=== PATIENT | female | born 1990 | race Caucasian/White ===

== ENCOUNTER 2020-01-30 23:33 | Emergency (ER) | payer OTHER ==
[2020-01-30 23:49] VITALS: RESP 18
--- NOTE | 2020-01-31 00:08 | XR ---
EXAMINATION TYPE: XR knee complete RT DATE OF EXAM: 01/31/2020 COMPARISON: NONE HISTORY: Knee pain TECHNIQUE: 3 views FINDINGS: I see no fracture nor dislocation. Joint spaces are normal. There is no sign of knee joint effusion. IMPRESSION: Negative right knee exam. No fracture.
[2020-01-31] MEDS ORDERED: ACET/COD 300 MG/30 MG STARTER PACK 6 TAB BTL PO STA (00:40)
[2020-01-31] MEDS ORDERED: IBUPROFEN 600 MG STARTER PACK 4 TAB BTL PO STA (00:40)
--- NOTE | 2020-01-31 00:41 | ED ---
Lower Extremity Injury HPI - General Chief Complaint: Extremity Injury, Lower Stated Complaint: RT knee injury Time Seen by Provider: 01/31/20 00:19 Source: patient, family Mode of arrival: ambulatory Limitations: no limitations - History of Present Illness Initial Comments: 29-year-old female patient presents to the emergency department today for evalua tion of right knee injury. Patient states that she was swinging at the park earlier today. Patient states that when she jumped off she twisted her knee. Patient states she is having pain and swelling to the medial aspect of the knee. States it is very difficult to walk. She denies any pain radiation down her leg. Denies numbness or tingling to the extremity. Denies falling, hitting her head, or sustaining any other injuries. Denies taking any medication for her symptoms. Denies previous knee injury. Patient denies any headache, neck pain, back pain, chest pain, shortness of breath, dizziness, weakness, abdominal pain, nausea, vomiting, or difficulties with bowel movements or urination. - Related Data Home Medications Medication Instructions Recorded Confirmed Albuterol Inhaler(Unknown Dose) 1 puff PO DIRECTED PRN 02/17/14 12/27/14 Previous Rx's Medication Instructions Recorded Acetaminophen-Codeine 300-30mg 1 tab PO Q4H PRN #30 tablet 12/29/14 [Tylenol #3] Ibuprofen [Motrin] 600 mg PO Q6HR PRN #30 tab 12/29/14 RX: Ibuprofen [Motrin] 600 mg PO Q8HR PRN #30 tab 01/31/20 Allergies Allergy/AdvReac Type Severity Reaction Status Date / Time No Known Allergies Allergy Verified 01/30/20 23:49 Review of Systems ROS Statement: Those systems with pertinent positive or pertinent negative responses have been documented in the HPI. ROS Other: All systems not noted in ROS Statement are negative. Past Medical History Past Medical History: Asthma Additional Past Medical History / Comment(s): Bartholeins cyst, CONTROL IMPLANT IN LEFT ARM History of Any Multi-Drug Resistant Organisms: None Reported Past Surgical History: Section Additional Past Surgical History / Comment(s): 11/14 cyst drained Past Anesthesia/Blood Transfusion Reactions: No Reported Reaction Past Psychological History: ADD/ADHD Smoking Status: Current every day smoker Past Alcohol Use History: Occasional Past Drug Use History: None Reported - Past Family History Mother Family Medical History: No Reported History General Exam Limitations: no limitations General appearance: alert, in no apparent distress, other (This is a well- developed, well-nourished adult female patient in no acute distress. Vital signs upon presentation are temperature 98.3F, pulse 89, respirations 18, blood pressure 137/91, pulse ox 99% on room air.) Respiratory exam: Present: normal lung sounds bilaterally. Absent: respiratory distress, wheezes, rales, rhonchi, stridor Cardiovascular Exam: Present: regular rate, normal rhythm, normal heart sounds. Absent: systolic murmur, diastolic murmur, rubs, gallop, clicks Extremities exam: Present: full ROM, tenderness (There is tenderness over the medial aspect of the right knee.), normal capillary refill, other (There is soft tissue swelling and tenderness noted over the right medial knee. Patient has increased pain with valgus and varus maneuvers. There is no laxity however. Skin is otherwise pink, warm, dry. Cap refills less than 3 seconds. Pedal and posttibial pulses are 2+ and equal bilaterally.). Absent: normal inspection, pedal edema, joint swelling, calf tenderness Neurological exam: Present: alert, oriented X3, CN II-XII intact Psychiatric exam: Present: normal affect, normal mood Skin exam: Present: warm, dry, intact, normal color. Absent: rash Course Vital Signs 01/30/20 01/31/20 23:44 01:09 Temperature 98.3 F 98 F Pulse Rate 89 78 Respiratory 18 18 Rate Blood Pressure 137/91 122/72 O2 Sat by Pulse 99 97 Oximetry Medical Decision Making - Medical Decision Making 29-year-old female patient presents to the emergency department today for evaluation of right knee pain and swelling. Physical examination did reveal soft tissue swelling and tenderness over the medial aspect of the knee. Neurovascular status was intact. X-ray was negative. We did place patient in a Mike wrap. Given prescription for ibuprofen. She'll be discharged follow up with methods specialist engineer for further evaluation as soon as possible, she is instructed to call for an appointment in the morning. She is instructed to follow-up with the primary care physician for recheck in 1-2 days. Return parameters discussed in detail. She verbalizes understanding and agrees with this plan. - Radiology Data Radiology results: report reviewed, image reviewed 3 views of the right knee are obtained. Report was reviewed in its entirety. Impression by Dr. Galan shows negative right knee exam. No fracture. Disposition Clinical Impression: Strain of right knee Disposition: HOME SELF-CARE Condition: Good Instructions (If sedation given, give patient instructions): Knee Sprain (ED) Additional Instructions: Rest, ice, elevate the right knee. Use Mike wrap for comfort and support. Take medications as directed. Follow-up with methods specialist engineer for further evaluation as soon as possible, Call tomorrow for an appointment. Return to the emergency department immediately for any new, worsening, or concerning symptoms. Prescriptions: RX: Ibuprofen [Motrin] 600 mg PO Q8HR PRN #30 tab PRN Reason: Pain Is patient prescribed a controlled substance at d/c from ED?: No Referrals: Alex Pedraza MD [Primary Care Provider] - 1-2 days Dano Tobar MD [STAFF PHYSICIAN] - 1-2 days Time of Disposition: 00:41
[2020-01-31 01:10] VITALS: BP 122/72; PULSE 78; TEMP 98
== END 2020-01-31 01:11 | disposition home or self-care (01) ==
LOC: EC 23:33
DX: S86.911A Strain of unspecified muscle(s) and tendon(s) at lower leg level, right leg, initial encounter (principal); J45.909 Unspecified asthma, uncomplicated; F17.200 Nicotine dependence, unspecified, uncomplicated; X50.1XXA Overexertion from prolonged static or awkward postures, initial encounter; Y93.39 Activity, other involving climbing, rappelling and jumping off
CPT/HCPCS: 99283

== ENCOUNTER 2020-02-16 19:04 | Emergency (ER) | payer OTHER ==
[2020-02-16] MEDS ORDERED: IBUPROFEN 600 MG TAB PO STA (19:42)
--- NOTE | 2020-02-16 20:03 | ED ---
General Adult HPI - General Chief complaint: Extremity Injury, Upper Stated complaint: rt wrist injury Time Seen by Provider: 02/16/20 19:30 Source: patient Mode of arrival: ambulatory Limitations: no limitations - History of Present Illness Initial comments: This is a 29-year-old female who presents to the emergency department this evening with complaints of right wrist pain, onset yesterday. Patient denies any injury or trauma. 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 Patient reports increased pain with wrist extension. Arrives with an Mike wrap to affected wrist and feels that it is beneficial. Denies any numbness or tingling to the fingers. Patient denies any recent rash, fever, chills, cough, shortness of breath, chest pain, abdominal pain, nausea, vomiting, diarrhea, constipation, back pain, dizziness, weakness, hematuria, dysuria, urinary urgency, urinary frequency, headache, visual changes, or any other complaints. - Related Data Home Medications Medication Instructions Recorded Confirmed Albuterol Inhaler(Unknown Dose) 1 puff PO DIRECTED PRN 02/17/14 12/27/14 Previous Rx's Medication Instructions Recorded Acetaminophen-Codeine 300-30mg 1 tab PO Q4H PRN #30 tablet 12/29/14 [Tylenol #3] Ibuprofen [Motrin] 600 mg PO Q6HR PRN #30 tab 12/29/14 Ibuprofen [Motrin] 600 mg PO Q8HR PRN #30 tab 01/31/20 Ibuprofen [Motrin] 600 mg PO Q8HR PRN #30 tab 02/16/20 Allergies Allergy/AdvReac Type Severity Reaction Status Date / Time No Known Allergies Allergy Verified 02/16/20 19:24 Review of Systems ROS Statement: Those systems with pertinent positive or pertinent negative responses have been documented in the HPI. ROS Other: All systems not noted in ROS Statement are negative. Past Medical History Past Medical History: Asthma Additional Past Medical History / Comment(s): Bartholeins cyst, CONTROL IMPLANT IN LEFT ARM History of Any Multi-Drug Resistant Organisms: None Reported Past Surgical History: Section Additional Past Surgical History / Comment(s): 11/14 cyst drained Past Anesthesia/Blood Transfusion Reactions: No Reported Reaction Past Psychological History: ADD/ADHD Smoking Status: Current every day smoker Past Alcohol Use History: Occasional Past Drug Use History: None Reported - Past Family History Mother Family Medical History: No Reported History General Exam Limitations: no limitations General appearance: alert, in no apparent distress, other (This is a well- developed, well-nourished female who presents to the emergency department in no acute distress. Temperature of 98.3F, pulse 113, respirations 20, blood pressure 137/100, pulse ox 99% on room air) Respiratory exam: Present: normal lung sounds bilaterally. Absent: respiratory distress, wheezes, rales, rhonchi, stridor Cardiovascular Exam: Present: regular rate, normal rhythm, normal heart sounds. Absent: systolic murmur, diastolic murmur, rubs, gallop, clicks Right Forearm Wrist exam: Present: tenderness, swelling, crepitus, other (Mild swelling noted to the distal radius on the right wrist/forearm; +René test) Vascular: Present: radial pulse Neurological exam: Present: alert, oriented X3, CN II-XII intact Psychiatric exam: Present: normal affect, normal mood Skin exam: Present: warm, dry, intact, normal color. Absent: rash Course Vital Signs 02/16/20 02/16/20 19:21 21:21 Temperature 98.3 F 98.0 F Pulse Rate 113 H 98 Respiratory 20 18 Rate Blood Pressure 137/100 135/89 O2 Sat by Pulse 99 99 Oximetry Medical Decision Making - Medical Decision Making This is a 29-year-old female who presented to the emergency Department with complaints of right wrist pain and swelling, onset yesterday. 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 Physical examination reveals soft tissue swelling, tenderness, and crepitus to the right wrist. She had positive Finkelst ein test. Neurovascular status intact. XRay was negative. Symptoms and findings consistent with Dequervain's Tenosynovitis. We will treat with compression and antinflammatory medication. She will be discharged to follow up with her primary care physician for recheck in 1-2 days. Return parameters are discussed in detail. She verbalizes understanding and agrees with this plan. - Radiology Data Radiology results: report reviewed, image reviewed X-ray of the right wrist was obtained. Findings include intact metacarpals. No fracture nor dislocation. Normal joint spaces. Impression per Dr. Galan is a negative right wrist exam. Disposition Clinical Impression: De Quervain's tenosynovitis, right Disposition: HOME SELF-CARE Condition: Good Instructions (If sedation given, give patient instructions): De Quervain Disease (ED) Additional Instructions: Continue using an Mike wrap for support. Take anti-inflammatory medicines as needed for pain. Follow up with primary care doctor in 1-2 days. Return to the emergency Department with any new, worsening, or concerning symptoms. Prescriptions: Ibuprofen [Motrin] 600 mg PO Q8HR PRN #30 tab PRN Reason: Pain Is patient prescribed a controlled substance at d/c from ED?: No Referrals: Alex Pedraza MD [Primary Care Provider] - 1-2 days Time of Disposition: 20:54
--- NOTE | 2020-02-16 20:27 | XR ---
EXAMINATION TYPE: XR wrist complete RT DATE OF EXAM: 02/16/2020 COMPARISON: NONE HISTORY: Wrist pain TECHNIQUE: 4 views FINDINGS: Metacarpals appear intact. I see no fracture nor dislocation. Joint spaces are normal. IMPRESSION: Negative right wrist exam.
[2020-02-16 21:22] VITALS: BP 135/89; PULSE 98; RESP 18; TEMP 98
== END 2020-02-16 21:22 | disposition home or self-care (01) ==
LOC: EC 19:04
DX: M65.4 Radial styloid tenosynovitis [de Quervain] (principal); F17.200 Nicotine dependence, unspecified, uncomplicated; J45.909 Unspecified asthma, uncomplicated; Z79.51 Long term (current) use of inhaled steroids
CPT/HCPCS: 99283

== ENCOUNTER 2020-03-04 10:45 | Emergency (ER) | payer OTHER ==
[2020-03-04] MEDS ORDERED: LIDOCAINE 1% INJ 10MG/ML (20 ML MDV) SQ ONE (11:06)
--- NOTE | 2020-03-04 11:10 | ED ---
Skin/Abscess/FB HPI - General Chief complaint: Skin/Abscess/Foreign Body Stated complaint: leg pain Time Seen by Provider: 03/04/20 11:00 Source: patient, RN notes reviewed, old records reviewed Mode of arrival: ambulatory Limitations: no limitations - History of Present Illness Initial comments: Patient is a 29-year-old female who presents emergency department today with abscess to the left perineal area for the past 2 days. She reports no history of resistant skin infections. She states that she's had Bartholin glands abscess before however seems to be further posterior. She denies any rectal pain or difficulty with urination or bowel habits. She states that she's had no history of recent skin infections. - Related Data Home Medications Medication Instructions Recorded Confirmed Albuterol Inhaler(Unknown Dose) 1 puff PO DIRECTED PRN 02/17/14 12/27/14 Previous Rx's Medication Instructions Recorded Acetaminophen-Codeine 300-30mg 1 tab PO Q4H PRN #30 tablet 12/29/14 [Tylenol #3] Ibuprofen [Motrin] 600 mg PO Q6HR PRN #30 tab 12/29/14 Ibuprofen [Motrin] 600 mg PO Q8HR PRN #30 tab 01/31/20 Ibuprofen [Motrin] 600 mg PO Q8HR PRN #30 tab 02/16/20 Clindamycin [Cleocin] 450 mg PO TID 10 Days #90 capsule 03/04/20 Allergies Allergy/AdvReac Type Severity Reaction Status Date / Time No Known Allergies Allergy Verified 03/04/20 10:57 Review of Systems ROS Statement: Those systems with pertinent positive or pertinent negative responses have been documented in the HPI. ROS Other: All systems not noted in ROS Statement are negative. Past Medical History Past Medical History: Asthma Additional Past Medical History / Comment(s): Bartholeins cyst, CONTROL IMPLANT IN LEFT ARM History of Any Multi-Drug Resistant Organisms: None Reported Past Surgical History: Section Additional Past Surgical History / Comment(s): 11/14 cyst drained Past Anesthesia/Blood Transfusion Reactions: No Reported Reaction Past Psychological History: ADD/ADHD Smoking Status: Current every day smoker Past Alcohol Use History: Daily Past Drug Use History: None Reported - Past Family History Mother Family Medical History: No Reported History General Exam - General Exam Comments Initial Comments: 29-year-old female. Alert and oriented 3. Limitations: no limitations General appearance: alert, in no apparent distress Head exam: Present: atraumatic, normocephalic, normal inspection Eye exam: Present: normal appearance, PERRL, EOMI. Absent: scleral icterus, conjunctival injection, periorbital swelling ENT exam: Present: normal exam, mucous membranes moist Neck exam: Present: normal inspection. Absent: tenderness, meningismus, lymphadenopathy Respiratory exam: Present: normal lung sounds bilaterally. Absent: respiratory distress, wheezes, rales, rhonchi, stridor Cardiovascular Exam: Present: regular rate, normal rhythm, normal heart sounds. Absent: systolic murmur, diastolic murmur, rubs, gallop, clicks GI/Abdominal exam: Present: soft, normal bowel sounds. Absent: distended, tenderness, guarding, rebound, rigid External exam: Absent: normal external exam (Patient has evidence of a left- sided perineal abscess. No evidence of rectal involvement. No erythema or swelling to rinse the rectum. The erythema extends to the left labia and groin. There is a central abscess measuring 2 cm x 3 cm.) Extremities exam: Present: normal inspection, full ROM, normal capillary refill. Absent: tenderness, pedal edema, joint swelling, calf tenderness Back exam: Present: normal inspection Neurological exam: Present: alert, oriented X3, CN II-XII intact Psychiatric exam: Present: normal affect, normal mood Skin exam: Present: warm, dry, intact, normal color. Absent: rash Course Vital Signs 03/04/20 10:52 Temperature 97.8 F Pulse Rate 128 H Respiratory 18 Rate Blood Pressure 149/102 O2 Sat by Pulse 100 Oximetry Procedures - [place] Protocol (Time Out) Performing Provider: Gauri Vargas Timeout Date: 03/04/20 Timeout Time: 11:10 Patient Identification (2 identifiers required): Chart, Verbal Patient/Legal Leg Breaker has Confirmed: Identity, Site, Procedure Site: L perineum Site Marked: Yes Site Verified With Patient/Guardian: Yes Final Confirmation: Procedure - Incision & Drainage Indication: 2 Site: other (Perineum) Size (cm): 1 Anesthetic Used: lidocaine 1% Amount (mLs): 1 I&D Cleaning Method: Iodine Sterile Field Used?: Yes Scalpel Used: #11 I&D Drainage Obtained: Pus, Blood Packing: Iodoform Culture Obtained?: Yes Complications: pain Patient Tolerated Procedure: well, no complications Medical Decision Making - Medical Decision Making 29-year-old female presents emergency times a day with 2 days of a left-sided perineal abscess. No evidence of perirectal abscess. No pain with defecation or rectal erythema or involvement of this abscess. Patient had Tylenol performed incision and drainage completed. Patient tolerated the procedure well. Packing was completed. Aerobic wound culture completed. Patient will be started on clindamycin she states she's had a reaction to Bactrim in the past.I discussed Patient needs follow-up with surgeon in 2 days to have packing removed. Disposition Clinical Impression: Abscess, perineum Disposition: HOME SELF-CARE Condition: Good Instructions (If sedation given, give patient instructions): Abscess Incision and Drainage (ED) Additional Instructions: Patient has a follow-up with surgery to have packing removed in 2 days. Patient should perform sits baths. Take antibiotics as prescribed. Return to the ED if any alarming signs or symptoms occur. Prescriptions: Clindamycin [Cleocin] 450 mg PO TID 10 Days #90 capsule Is patient prescribed a controlled substance at d/c from ED?: No Referrals: Alex Pedraza MD [Primary Care Provider] - 1-2 days Time of Disposition: 11:50
[2020-03-04] MEDS ORDERED: CLINDAMYCIN 150 MG CAP PO STA (11:50)
[2020-03-04] MEDS ORDERED: ACET/COD 300 MG/30 MG STARTER PACK 6 TAB BTL PO STA (11:50)
[2020-03-04 12:19] VITALS: BP 150/99; PULSE 105; RESP 12; TEMP 98.1
== END 2020-03-04 12:18 | disposition home or self-care (01) ==
LOC: EC 10:45
DX: L02.215 Cutaneous abscess of perineum (principal); J45.909 Unspecified asthma, uncomplicated; F17.200 Nicotine dependence, unspecified, uncomplicated
CPT/HCPCS: 87070; 87205; 99284; 56405; J2001

== ENCOUNTER → 2024-03-19 | Outpatient (CLI) | payer OTHER ==
--- NOTE | 2024-03-19 12:19 | US ---
EXAMINATION TYPE: US abdomen limited DATE OF EXAM: 03/19/2024 COMPARISON: NONE CLINICAL INDICATION: Female, 33 years old with history of R79.89 ABNORMAL FINDINGS OF BLOOD CHEMISTRY ; LFTs TECHNIQUE: Grayscale and color Doppler imaging of the right upper quadrant was performed. FINDINGS: EXAM MEASUREMENTS: Liver Length: 15.4x9.8x4.4 cm Gallbladder Wall: 0.2 cm CBD: 0.4 cm Right Kidney: 9.8x4.4x5.3 cm TUTORING ASSISTANT NOTES: Pancreas: Tail obscured by overlying bowel gas Liver: hyperechoic are mid liver measures3.7x1.9x3.6cm ?focal fatty infiltration vs. other? Gallbladder: 0.4cm echogenic foci noted within Evidence for sonographic Gresham's sign: No CBD: wnl Right Kidney: wnl Examination is limited due to overlying bowel gas. The visualized portions of the pancreas are unrema rkable. Noncirrhotic morphology. Hyperechoic mid liver 3.7 cm lesion. Vessels are seen coursing throu gh this region. The tail is obscured by overlying bowel gas. Cholelithiasis. No wall thickening or skelton rrounding fluid. Negative sonographic Gresham's sign. Common bile duct is within normal limits. Right kidney demonstrates no hydronephrosis, nephrolithiasis, or solid mass. IMPRESSION: 1. Hyperechoic 3.7 cm hepatic lesion. May represent focal fatty infiltration versus other etiologies such as an hemangioma. Further evaluation with CT or MR abdomen with IV contrast ( liver mass protoc ol) is recommended for better characterization. 2. Cholelithiasis without evidence for acute cholecystitis. [facility], , 03/19/2024 12:17 PM
== END | disposition home or self-care (01) ==
LOC: RADUSWWP 06:47
PROVIDERS: ATTEND Family Medicine
CPT/HCPCS: 76705

== ENCOUNTER → 2024-04-15 | Outpatient (CLI) | payer OTHER ==
--- NOTE | 2024-04-15 12:33 | CT ---
EXAMINATION TYPE: CT abdomen wo/w con DATE OF EXAM: 04/15/2024 COMPARISON: None CLINICAL INDICATION: Female, 33 years old with history of K76.9 LIVER DISEASE, UNSPECIFIED; PHH, abn LFTs, liver lesion TECHNIQUE: Performed without Oral Contrast and without and with IV Contrast, patient injected with 100 mL of Iso adry 300. CT DLP: [address] CTDI: mGy Automated exposure control for dose reduction was used. FINDINGS: The lung bases are clear. The gallbladder is normal without distention, wall thickening, pericholecystic fluid or gallstones. T here is no biliary ductal dilatation. There is a well-circumscribed 2.1 cm focal area of decreased density adjacent to the falciform ligame nt. A second smaller similar-appearing low density lesion is seen adjacent to the ligament more anter iorly. There is no enhancement following contrast on arterial, venous and delayed imaging.. The findi ngs suggest fatty infiltration or an atypical hemangioma. MRI would be useful for further evaluation. There is no solid renal mass or hydronephrosis and there is homogeneous contrast enhancement of the r enal parenchyma. The caliber the abdominal aorta is normal is no retroperitoneal adenopathy or hemorr juan. The bowel loops are normal in caliber and there is no evidence of dilatation or obstruction. No infla mmatory changes are identified in the bowel wall or mesentery. There is no free intraperitoneal air or fluid. The osseous structures and soft tissues are intact. IMPRESSION: 2 liver masses adjacent to the falciform ligament as described above. The findings most likely repres ent fatty infiltration or atypical hemangioma. MRI of the liver would be useful for further evaluatio n and to confirm a benign etiology [facility], , 04/15/2024 12:31 PM
== END | disposition home or self-care (01) ==
LOC: RADCTMAIN 11:30
PROVIDERS: ATTEND Family Medicine
DX: K76.9 Liver disease, unspecified (principal); R16.0 Hepatomegaly, not elsewhere classified
CPT/HCPCS: 74170; Q9967

== ENCOUNTER → 2024-07-30 | Outpatient (CLI) | payer OTHER ==
--- NOTE | 2024-08-01 11:06 | MR ---
EXAMINATION TYPE: MR liver wo/w con DATE OF EXAM: 07/30/2024 8:32 PM INDICATION: Patient age:Female; 33 years old; Reason for study: K76.9 LIVER DISEASE; PHH. COMPARISON: CT abdomen 04/15/2024, abdominal ultrasound 03/19/2024 TECHNIQUE: Multiplanar multi-sequence imaging was performed without and with IV contrast. The patien t was given 7 ccs of Gadavist intravenously and dynamic imaging was performed. Post IV contrast subtr action images were also submitted for review. FINDINGS: LOWER CHEST: No gross irregularity. ABDOMEN Liver: Noncirrhotic morphology. T2 hypointense 2.4 cm lesion within segment IVb (series 801, image 4 1) with additional 1 cm hypointense T2 lesion within segment IVb (series 801, image 34). Both lesions demonstrate dropout of signal on out of phase imaging with mild T1 hyperintensity. No arterial enhan cement identified. There is enhancing vessels coursing through this region. Scattered regions of floyd sient hepatic intensity differences. Gallbladder and Bile ducts: Unremarkable. Pancreas: Unremarkable. Spleen: Unremarkable. Adrenal glands: Unremarkable. Kidneys: Unremarkable. Stomach and Bowel: Unremarkable as visualized. Peritoneum: No evidence of pneumoperitoneum, free fluid, or adenopathy. Vasculature: Unremarkable. No aortic aneurysm. Abdominal wall: Fat-containing periumbilical hernia. Musculoskeletal: The osseous structures appear intact. IMPRESSION: Both hepatic lesions within segment IVb are favored to represent focal fatty infiltration. [facility], , 08/01/2024 11:04 AM
== END | disposition home or self-care (01) ==
LOC: RADMRIMAIN 20:00
PROVIDERS: ATTEND Internal Medicine Gastroenterology
DX: K76.9 Liver disease, unspecified (principal)
CPT/HCPCS: 74183; A9585